=== PATIENT | female | born 1975 | race Caucasian/White ===

== ENCOUNTER 2018-05-23 09:45 | Outpatient (CLI) | payer OTHER | END 2018-05-23 09:46 | disposition home or self-care (01) | LOC: C.PAT 09:45 | DX: D06.9 Carcinoma in situ of cervix, unspecified (principal) ==

== ENCOUNTER 2018-05-29 11:10 | Day surgery (SDC) | payer OTHER ==
[2018-05-23 10:00] VITALS: BMI 23.1
[2018-05-29 12:22] VITALS: O2SAT 100
[2018-05-29] MEDS ORDERED: Strong Iodine Topical Sol. 5%-10% ONE (13:44)
[2018-05-29] MEDS ORDERED: Midazolam 2 MG/2 ML VIAL ONE (14:01)
[2018-05-29] MEDS ORDERED: Propofol 10 mg/ml Inj (20 ML) ONE (14:01)
[2018-05-29] MEDS ORDERED: cefTRIAXone 1 gm 0 GM/0 ML BAG IVPB ONE (14:26)
[2018-05-29] MEDS: HYDROmorphone 0.5 mg/0.5 ml ISec IVP PRN ×2 (14:51→15:15)
--- NOTE | 2018-05-29 14:53 | PCM.SURG1 ---
Surgeon's Initial Post Op Note - Surgeon's Notes Surgeon: Dr. Bertrand Monitoring Manager: None Type of Anesthesia: General Endo Anesthesia Administered By: Dr. Hunt Pre-Operative Diagnosis: 43 yo with LUIS II/LUIS III Operative Findings: Cervical Dysplasia , hgsil Post-Operative Diagnosis: CINII/ III. Cervical Dysplasia Operation Performed: Cold knife cone biopsy Specimen/Specimens Removed: Cervix, ECC Estimated Blood Loss: EBL {In ML}: 15 Blood Products Given: N/A Drains Used: No Drains Post-Op Condition: Good Date of Surgery/Procedure: 05/29/18 Time of Surgery/Procedure: 14:53
[2018-05-29 16:10] VITALS: BP 90/60; RESP 18
[2018-05-29 17:10] VITALS: PULSE 82; TEMP 98
--- NOTE | 2018-05-30 09:20 | OP ---
PROCEDURE DATE: 05/29/2018 PREOPERATIVE DIAGNOSES: A 43-year-old female with high-grade squamous intraepithelial lesion, cervical intraepithelial neoplasia 2-cervical intraepithelial neoplasia 3. POSTOPERATIVE DIAGNOSES: A 43-year-old female with high-grade squamous intraepithelial lesion, cervical intraepithelial neoplasia 2-cervical intraepithelial neoplasia 3. PROCEDURE: Cold knife cone biopsy and endocervical curetting. SURGEON: Sharon Bertrand MD RESEARCH PHYSICIST: . TYPE OF ANESTHESIA: General LMA. ANESTHESIA ADMINISTERED BY: FINDINGS: Anteverted cervix, area is demarcation upon the application of Lugol. IV FLUID INTAKE: 500 mL ESTIMATED BLOOD LOSS: Approximately 10 mL. COMPLICATIONS: None. SPECIMEN: Cervix as well as endocervical curetting. DESCRIPTION OF PROCEDURE: The patient was informed of the risks, benefits, and alternatives of the procedure. Risks factors included dyspareunia, infection, cervical stenosis, bleeding, complications from anesthesia, hysterectomy, damage to surrounding organ and tissue such as bladder, bowel, and uterus as well as need for blood transfusion, and possible . Risk factor explained, but not limited to. All questions were answered prior to obtaining the consent. Once the consent was obtained, she was then taken to the operating room, prepped and draped in normal sterile fashion, placed in dorsal lithotomy position. Given anesthesia, which was found to be adequate. A speculum was placed into the vagina, two stitches were done at 6 and 9 o'clock. The cold knife was performed using a #15 blade. In that particular instance, the cervix was removed for pathology. Upon removing the cervix, endocervical curetting was then performed. In that particular instance, a bovie cautery was then applied to the cervix for hemostasis. Monsel was also applied to the cervix and a stitch was performed on the posterior cervix with 0 Vicryl for excellent hemostasis. Upon completion, all instruments were removed from the vagina. Instruments and lap counts were correct x2. The patient was then taken to the recovery room in stable condition and instructed to follow up in the office in approximately 2 weeks. Sharon Bertrand MD [facility] # [id number]
== END 2018-05-29 17:12 | disposition home or self-care (01) ==
LOC: C.SDS 11:10
PROVIDERS: ATTEND Obstetrics & Gynecology
DX: R87.613 High grade squamous intraepithelial lesion on cytologic smear of cervix (HGSIL) (principal); N72 Inflammatory disease of cervix uteri
CPT/HCPCS: 57520; 88305; J1100; J1170; J2001; J2250; J2405; J2704; J3010